=== PATIENT | male | born 1955 | race Hispanic/Latino ===

== ENCOUNTER 2020-04-04 05:40 | Day surgery (SDC) | payer OTHER, MEDICARE ==
[2020-04-02 11:22] LABS: BASOPHILS % (AUTO) 0.3 % (0.0-5.0); EOSINOPHILS % (AUTO) 0.5 % (0.0-8.0); HEMATOCRIT 33.1 % (42-54); LYMPHOCYTES % (AUTO) 25.4 % (21.0-51.0); MEAN CORPUSCULAR HEMOGLOBIN 28.9 pg (27.0-33.0); MEAN CORPUSCULAR HGB CONC 32.3 g/dL (32.0-36.0); MEAN CORPUSCULAR VOLUME 89.5 fL (79-99); MONOCYTES % (AUTO) 12.1 % (3.0-13.0); NEUTROPHILS % (AUTO) 61.4 % (40.0-77.0); PLATELET COUNT (AUTO) 288 K/uL (130-400); RED CELL DISTRIBUTION WIDTH 14.4 % (11.0-15.5); WHITE BLOOD COUNT (AUTO) 7.8 K/uL (4.8-10.8)
[2020-04-02 11:36] LABS: POTASSIUM 3.6 mmol/L (3.5-5.1)
[2020-04-02 11:53] LABS: INR 1.03 (0.85-1.15); PARTIAL THROMBOPLASTIN TIME 26.5 SEC (26.3-35.5); PROTHROMBIN TIME 11.1 SEC (9.6-11.6)
[2020-04-02 12:21] LABS: APPEARANCE,URINE Clear (CLEAR); BILIRUBIN,URINE Negative (NEGATIVE); COLOR,URINE Yellow (YELLOW); GLUCOSE, URINE (UA) Negative (NEGATIVE); KETONES,URINE Negative (NEGATIVE); LEUKOCYTE ESTERASE ,URINE Negative (NEGATIVE); NITRATE,URINE Negative (NEGATIVE); OCCULT BLOOD,URINE Negative (NEGATIVE); PH,URINE 6.5 (5.0-8.0); PROTEIN,URINE Negative (NEGATIVE); UROBILINOGEN,URINE 0.2 mg/dL (0.2-1.0)
--- NOTE | 2020-04-03 14:44 | NUR ---
LABS ABNORMAL HH REPORTED TO JOVANNY WEI,NO FURTHER ORDERS GIVEN
[2020-04-04] VITALS (12 sets, daily range): BP systolic 115–157; BP diastolic 61–82
[~2020-04-04 05:40] MED LIST: ACETAMINOPHEN 325 MG TAB PO PRN; ASPI-556 PO; ATOR40TA71 PO; CITA10TA13 PO; CLOP75TA32 PO; FAMO20TA8 PO; FURO40TA5 PO; LISI-613 PO; METO-391 PO; SODIUM CHLORIDE 0.9% 500ML 500 ML IV SCH
[2020-04-04] MEDS ORDERED: NALOXONE HCL 0.4 MG/1 ML ML ONE (07:09)
[2020-04-04] MEDS ORDERED: MIDAZOLAM HCL 1 MG/ML 2ML VIAL ONE ×5 (07:10→13:38)
[2020-04-04] MEDS ORDERED: FENTANYL CITRATE PF 50 MCG/1 ML 2ML VIAL ONE (07:10)
[2020-04-04] MEDS ORDERED: FLUMAZENIL 0.1MG/1ML 5ML VIAL IV ONE (07:13)
[2020-04-04] MEDS ORDERED: BENZOCAINE 20% 57 GM SPRAY TP SCH (07:15)
[2020-04-04] MEDS ORDERED: SODIUM CHLORIDE 0.9% 1000ML 1,000 ML IV ONE (08:35)
--- NOTE | 2020-04-04 12:00 | NUR ---
KWASI KWASI PERFORMED AT BEDSIDE BY DR. SMITH. ELIDIA, BULK FILLER AT BEDSIDE. PT TOLERATED PROCEDURE WELL. PT TAKEN TO CARD BOXER VIA BED BY MARGY SEPULVEDA. PT AWAKE AND ALERT.
[2020-04-04] MEDS ORDERED: HEPARIN SODIUM 1000UNIT/ML 10ML VIAL ONE (12:07)
[2020-04-04] MEDS ORDERED: IOHEXOL-350 50ML VIAL IV ONE (12:07)
[2020-04-04] MEDS ORDERED: IOHEXOL-350 75 ML VIAL IV ONE (12:07)
[2020-04-04] MEDS ORDERED: LIDOCAINE HCL 2% 20ML ONE (12:07)
[2020-04-04] MEDS ORDERED: IOHEXOL 350 MG/ML 100ML INFUS..BTL IV ONE (12:07)
[2020-04-04] MEDS ORDERED: NITROGLYCERIN 2 MG/VIAL VIAL IV ONE (12:07)
[2020-04-04] MEDS ORDERED: SODIUM BICARB 50MEQ 50ML VIAL ONE (12:07)
[2020-04-04] MEDS ORDERED: ADENOSINE 90MG/30ML VIAL IV ONE (13:02)
[2020-04-04] MEDS ORDERED: NICARDIPINE HCL 25 MG/10 ML ML IV ONE (13:20)
[2020-04-04] MEDS ORDERED: MEPERIDINE-PF 25 MG/ML SYG ONE ×2 (13:22→13:38)
[2020-04-04] MEDS ORDERED: SODIUM CHLORIDE 0.9% 1000ML 1,000 ML IV SCH (14:49)
--- NOTE | 2020-04-04 15:18 | NUR ---
RAFAEL IN PLACE Addendum: 04/04/20 at 1554 by SWATHI HUANG RN RN Amended: Links added.
--- NOTE | 2020-04-04 15:43 | NUR ---
received report from moe smith rn , pt stable no concerns vital signs bp 117/64 pulse 57 r 17, oxygen 98 percent ra
--- NOTE | 2020-04-04 15:44 | NUR ---
REPORT REPORT GIVEN TO MARGY GARCIA. PT AAOX3. SITE TO RIGHT GROIN. SOFT TO TOUCH. TRBAND IN PLACE TO LEFT WRIST. NO BLEEDING, OOZING NOTED TO SITE.
--- NOTE | 2020-04-04 17:50 | NUR ---
PT LT WRIST TR BAND INTACT NO ACTIVE BLEEDING OR HEMATOMA AT START OF REMOVAL OF AIR TO TR BAND TR BAND 14ML AIR LT WRIST 1620 2ML REMOVED: 1635 2ML 1650 2ML 1705 2ML 1720 2ML 1735 2ML 1750 2ML 14 ML AIR REMOVED, TR BAND REMOVED NO ACTIVE BLEEDING OR HEMATOMA NOTE TO LT WRIST PT STABLE NO DISTRESS
--- NOTE | 2020-04-04 19:30 | NUR ---
PT STABLE NO DISTRESS, NO ACTIVE BLEEDING TO RT GROIN AND LT WRIST. DRESSINGS TO SITE ARE BOTH D/I. INSTRUCTIONS GIVEN TO DAUGHTER, VERBALIZED UNDERSTANDING. PT IVS BOTH D/C, PT DRESSES WITH ASSISTANCE. PT TAKEN OUT IN W/C TO CAR, DRIVEN HOME BY DAUGHTER.
== END 2020-04-04 19:30 | disposition home or self-care (01) ==
LOC: DAH 05:40
PROVIDERS: ATTEND Internal Medicine Cardiovascular Disease
DX: I25.10 Atherosclerotic heart disease of native coronary artery without angina pectoris (principal); I05.0 Rheumatic mitral stenosis; I65.23 Occlusion and stenosis of bilateral carotid arteries; I10 Essential (primary) hypertension; E78.5 Hyperlipidemia, unspecified; I25.2 Old myocardial infarction; Z79.82 Long term (current) use of aspirin; Z79.01 Long term (current) use of anticoagulants; Z79.899 Other long term (current) drug therapy
CPT/HCPCS: 36215; 36225; 36415; 71045; 80048; 81003; 85025; 85610; 85730; 93005; 93313; 93458; 93571; A4215; A4216; A4221; A4222; A4223 ×3; A4606; A4663; C1760; C1769 ×5; C1887; C1893; C1894 ×2; J0153; J1644 ×3; J2175 ×2; J2250 ×4; J3010; J3490 ×4; J7030; Q9967 ×3; 37246; 75710; 99152; 99156; 99157; J2310

== ENCOUNTER → 2021-10-18 | Outpatient (CLI) | payer OTHER, MEDICARE ==
[~2021-10-18] MED LIST changes: -ACETAMINOPHEN 325 MG TAB PO PRN; +AMIO200T44 PO; +BUDE0.256 IH; +DOCU-116 PO; +FERR325T22 PO; +FURO20TA6 PO; -FURO40TA5 PO; +IOHEXOL-350 75 ML VIAL IV ONE; -LISI-613 PO; -METO-391 PO; +METO25 PO; -SODIUM CHLORIDE 0.9% 500ML 500 ML IV SCH
== END | disposition home or self-care (01) ==
LOC: RAH 09:42
PROVIDERS: ATTEND Internal Medicine Cardiovascular Disease
DX: I65.29 Occlusion and stenosis of unspecified carotid artery (principal); M47.812 Spondylosis without myelopathy or radiculopathy, cervical region; I73.9 Peripheral vascular disease, unspecified
CPT/HCPCS: 70496; 70498; Q9967

== ENCOUNTER → 2022-12-03 | Outpatient (CLI) | payer OTHER, MEDICARE ==
[~2022-12-03] MED LIST changes: +AEC81 PO; -AMIO200T44 PO; +AMLO-258 PO; -ASPI-556 PO; -BUDE0.256 IH; -CITA10TA13 PO; +CITA10TA89 PO; +CLOP-31 PO; -CLOP75TA32 PO; -DOCU-116 PO; +DOCU-280 PO; +EZET10TA48 PO; +FERR-82 PO; -FERR325T22 PO; +FURO20TA4 PO; -FURO20TA6 PO; +HYDR-4153 PO; +IOHEXOL 350 MG/ML 100ML INFUS..BTL IV ONE; -IOHEXOL-350 75 ML VIAL IV ONE; +LOSA50TA64 PO; -METO25 PO; +METO25TA6 PO; +NITR0.4T50 SL; +TAMS-1 PO; +VITAD50000 PO
== END | disposition home or self-care (01) ==
LOC: RAH 09:32
PROVIDERS: ATTEND Internal Medicine Cardiovascular Disease
DX: I65.23 Occlusion and stenosis of bilateral carotid arteries (principal); Q25.49 Other congenital malformations of aorta
CPT/HCPCS: 70498; Q9967

== ENCOUNTER → 2023-02-16 | Outpatient (CLI) | payer OTHER, MEDICARE ==
[~2023-02-16] MED LIST changes: +CETI10TA57 PO; -DOCU-280 PO; +EMPA10TA PO; -FERR-82 PO; -FURO20TA4 PO; -HYDR-4153 PO; +IOHEXOL-350 50ML VIAL IV ONE; +LEVO750T39 PO; +LOSA100T59 PO; -LOSA50TA64 PO; -NITR0.4T50 SL; -VITAD50000 PO; +[UNRECOGNIZED DRUG - OTHER] PO
== END | disposition home or self-care (01) ==
LOC: RAH 09:35
PROVIDERS: ATTEND Internal Medicine Cardiovascular Disease
DX: K40.40 Unilateral inguinal hernia, with gangrene, not specified as recurrent (principal); I73.9 Peripheral vascular disease, unspecified; I25.10 Atherosclerotic heart disease of native coronary artery without angina pectoris; D65 Disseminated intravascular coagulation [defibrination syndrome]; I77.1 Stricture of artery; I70.0 Atherosclerosis of aorta; M47.815 Spondylosis without myelopathy or radiculopathy, thoracolumbar region; K57.30 Diverticulosis of large intestine without perforation or abscess without bleeding
CPT/HCPCS: 75635; Q9967 ×2

== ENCOUNTER → 2023-06-05 | Outpatient (CLI) | payer OTHER, MEDICARE ==
[~2023-06-05] VITALS: Ht 163.8 cm; Wt 77.2 kg
[~2023-06-05] MED LIST changes: +AMIO200T44 PO; +APIX5TAB PO; +CEFAZOLIN SODIUM 2 GM VIAL ONE; -IOHEXOL 350 MG/ML 100ML INFUS..BTL IV ONE; -IOHEXOL-350 50ML VIAL IV ONE; +LACTATED RINGERS 1000ML 1,000 ML IV ONE; +METO25 PO; +METO50TA18 PO
[2023-06-05 13:36] LABS: HEMATOCRIT 42.2 % (42-54); MEAN CORPUSCULAR HEMOGLOBIN 27.8 pg (27.0-33.0); MEAN CORPUSCULAR HGB CONC 32.7 g/dL (32.0-36.0); MEAN CORPUSCULAR VOLUME 85.1 fL (79-99); RED BLOOD CELL COUNT(AUTO) 4.96 MIL/uL (4.50-6.20); RED CELL DISTRIBUTION WIDTH 15.1 % (11.0-15.5); WHITE BLOOD COUNT (AUTO) 5.6 K/uL (4.8-10.8)
[2023-06-05 13:38] LABS: POTASSIUM 4.1 mmol/L (3.5-5.1)
[2023-06-05 13:41] LABS: INR 0.95 (0.85-1.15); PROTHROMBIN TIME 11.1 SEC (9.6-11.6)
[2023-06-05 13:42] LABS: PARTIAL THROMBOPLASTIN TIME 29.1 SEC (26.3-35.5)
[2023-06-05 14:14] VITALS: BP 135/65; PULSE 62; RESP 18
== END | disposition home or self-care (01) ==
LOC: DAH 12:40 → EDSTATUS 14:00 → UNDOADMIN 06-08 10:33 → DAHIP 06-08 10:33
PROVIDERS: ATTEND Thoracic Surgery (Cardiothoracic Vascular Surgery)
DX: Z01.818 Encounter for other preprocedural examination (principal); I73.9 Peripheral vascular disease, unspecified; Z98.890 Other specified postprocedural states; Z79.01 Long term (current) use of anticoagulants
CPT/HCPCS: 71045; 80048; 85027; 85610; 85730; 86850 ×2; 86900 ×2; 86901 ×2; 36415; 93005; A6260